=== PATIENT | male | born 1975 | race Caucasian/White ===

== ENCOUNTER 2019-09-05 09:06 | Emergency (ER) | payer MEDICAID, OTHER, SELFPAY ==
[~2019-09-05] VITALS: Ht 170.2 cm; Wt 91.0 kg
[2019-09-05 09:33] VITALS: BP 144/59
--- NOTE | 2019-09-05 09:45 | NUR ---
TASK RN:" PT TO ROOM FROM LOBBY AT THIS TIME. TIRSON
--- NOTE | 2019-09-05 10:02 | NUR ---
TASK RN: BEDSIDE REPORT TO MITCH DANIEL.
--- NOTE | 2019-09-05 10:04 | NUR ---
REPORT RECEIVED FROM MITCH BRADFORD. CARE ASSUMED.
[2019-09-05] MEDS ORDERED: DEXAMETHASONE 4 MG TABLET PO ONE (10:30)
[2019-09-05] MEDS ORDERED: DEXAMETHASONE 4 MG TABLET ONE (10:37)
--- NOTE | 2019-09-05 10:38 | NUR ---
PT MEDICATED PER ORDER.
--- NOTE | 2019-09-05 10:41 | NUR ---
Patient/Caregiver given discharge instructions and they have confirmed that they understand the instructions. Patient ambulatory with steady gait.
== END 2019-09-05 10:43 | disposition home or self-care (01) ==
LOC: ED 10:30
DX: J02.9 Acute pharyngitis, unspecified (principal); R51 Headache; M79.10 Myalgia, unspecified site
CPT/HCPCS: 87081; 87880; 99283

== ENCOUNTER 2019-11-17 17:28 | Emergency (ER) | payer MEDICAID, OTHER ==
[~2019-11-17] VITALS: Ht 170.2 cm; Wt 96.6 kg
--- NOTE | 2019-11-17 18:38 | NUR ---
patient arrives to the er with feeling tired, weak, headache for three weeks.
--- NOTE | 2019-11-17 18:53 | NUR ---
BS REPORT RECEIVED FROM MITCH OVIEDO. PT PROVIDED WARM BLANKET, MONITORING IN PLACE, CALL LIGHT WITHIN REACH. PT REPORTS "FEELING HUNGOVER" FOR X3 WEEKS.
[2019-11-17] MEDS ORDERED: SODIUM CHLORIDE 0.9% 1,000ML IVBOLUS ONE (19:30)
[2019-11-17 19:44] LABS: ALANINE AMINOTRANSFERASE 31 U/L (12-78); ALBUMIN 3.6 g/dL (3.4-5.0); ANION GAP 6 mmol/L (5-15); CALCIUM 8.6 mg/dL (8.5-10.1); CHLORIDE 106 mmol/L (98-107); CREATININE 1.15 mg/dL (0.7-1.3)
[2019-11-17 19:45] LABS: ALKALINE PHOSPHATASE 96 U/L (45-117); BILIRUBIN,TOTAL 0.3 mg/dL (0.2-1.0); TOTAL PROTEIN 7.3 g/dL (6.4-8.2)
[2019-11-17] MEDS ORDERED: KETOROLAC 30 MG/1 ML ONE (20:00)
[2019-11-17] MEDS ORDERED: KETOROLAC 30 MG/1 ML IVPush ONE (20:00)
--- NOTE | 2019-11-17 20:09 | NUR ---
PT RESTING ON GURNEY WITH X2 RAILS RAISED. MEDICATED PER NOV. CALL LIGHT WITHIN REACH. MONITORING APPLIED. UA COLLECTED.
[2019-11-17 20:33] LABS: AMPHETAMINE SCREEN, URINE Negative (Negative); BARBITURATE SCREEN, URINE Negative (Negative); BENZODIAZEPINE SCREEN, URINE Negative (Negative); CANNABINOID SCREEN, URINE Negative (Negative); COCAINE SCREEN, URINE Negative (Negative); METHADONE SCREEN, URINE Negative (Negative); OPIATE SCREEN, URINE Negative (Negative)
[2019-11-17 20:58] VITALS: BP 129/87
--- NOTE | 2019-11-17 21:10 | NUR ---
PT RESTING ON GURMARTHA. UPDATED ON POC. DENIES FURTHER NEEDS AT THIS TIME.
== END 2019-11-17 21:40 | disposition home or self-care (01) ==
LOC: ED 21:21
DX: G44.52 New daily persistent headache (NDPH) (principal); M79.10 Myalgia, unspecified site; R06.02 Shortness of breath
CPT/HCPCS: 36415; 70450; 71045; 80053; 80307; 93005; 96374; 99285; J1885; J7030; 96361

== ENCOUNTER 2021-02-05 23:03 | Emergency (ER) | payer SELFPAY ==
[~2021-02-05] VITALS: Ht 170.2 cm; Wt 99.0 kg
[2021-02-05 23:09] VITALS: BP 126/80
== END 2021-02-06 00:06 | disposition home or self-care (01) ==
LOC: ED 23:33
DX: K02.9 Dental caries, unspecified (principal); K08.89 Other specified disorders of teeth and supporting structures
CPT/HCPCS: 99283

== ENCOUNTER 2021-04-11 08:44 | Emergency (ER) | payer SELFPAY ==
[~2021-04-11] VITALS: Ht 170.2 cm; Wt 91.8 kg
--- NOTE | 2021-04-11 09:12 | NUR ---
PT HAS CO GI SYMPTOMS N/V X 1 WEEK AND WEAKNESS WITH DRY HEAVING. DENIES CP OR SOB. DENIES ANY HEALTH HISTORY
[2021-04-11] MEDS ORDERED: KETOROLAC 30 MG/1 ML IVPush ONE (09:30)
[2021-04-11] MEDS ORDERED: SODIUM CHLORIDE FLUSH 10ML SYR IVF ONE (09:30)
[2021-04-11] MEDS ORDERED: ONDANSETRON 2MG/ML, 2ML IV ONE (09:30)
[2021-04-11] MEDS ORDERED: SODIUM CHLORIDE 0.9% 1,000ML IVBOLUS ONE (09:30)
[2021-04-11] MEDS ORDERED: KETOROLAC 30 MG/1 ML ONE (09:45)
[2021-04-11] MEDS ORDERED: ONDANSETRON 2MG/ML, 2ML ONE (09:45)
--- NOTE | 2021-04-11 09:45 | NUR ---
MEDICATED PER ORDERS. IVF
[2021-04-11 09:48] VITALS: BP 116/77
[2021-04-11 09:55] LABS: BASOPHILS % (AUTO) 0 % (0-1); EOSINOPHILS % (AUTO) 1 % (1-7); LYMPHOCYTES % (AUTO) 18 % (22-44); MEAN CORPUSCULAR HGB CONC 35.2 g/dL (33.2-36.2); MEAN PLATELET VOLUME 7.4 fL (7.4-10.4); MONOCYTES % (AUTO) 12 % (2-9); NEUTROPHILS % (AUTO) 69 % (42-75); PLATELET COUNT 314 x10^3/uL (130-400); RED BLOOD COUNT 4.78 x10^6/uL (4.38-5.82); RED CELL DISTRIBUTION WIDTH 13.1 % (9.4-14.8)
[2021-04-11 10:04] LABS: ALANINE AMINOTRANSFERASE 36 U/L (12-78); ANION GAP 6 mmol/L (5-15); CHLORIDE 108 mmol/L (98-107); CREATININE 0.87 mg/dL (0.7-1.3)
[2021-04-11 10:06] LABS: ALKALINE PHOSPHATASE 111 U/L (45-117); BILIRUBIN,TOTAL 0.7 mg/dL (0.2-1.0); TOTAL PROTEIN 7.9 g/dL (6.4-8.2)
--- NOTE | 2021-04-11 10:36 | NUR ---
Patient/Caregiver given discharge instructions and they have confirmed that they understand the instructions. Patient ambulatory with steady gait.
== END 2021-04-11 10:38 | disposition home or self-care (01) ==
LOC: ED 09:25
DX: B34.9 Viral infection, unspecified (principal); Z20.822 Contact with and (suspected) exposure to COVID-19; K29.00 Acute gastritis without bleeding; R06.02 Shortness of breath; R94.31 Abnormal electrocardiogram [ECG] [EKG]
CPT/HCPCS: 36415; 71045; 80053; 83690; 85025; 93005; 96374; 96375; 99285; J1885; J2405; J7030; U0003; U0005